=== PATIENT | male | born 1965 | race Caucasian/White ===

== ENCOUNTER 2019-07-08 13:10 | Emergency (ER) | payer OTHER ==
[~2019-07-08] VITALS: Ht 177.8 cm; Wt 106.6 kg
[2019-07-08] MEDS ORDERED: KEFLEX500 M1 PO (14:18)
[2019-07-08] MEDS ORDERED: NORCO 5-325 TA1 EAC1 PO (14:18)
[2019-07-08 14:31] VITALS: BP 156/88
== END 2019-07-08 14:32 | disposition home or self-care (01) ==
LOC: M.ERS 13:10
DX: S01.511A Laceration without foreign body of lip, initial encounter (principal); Z85.828 Personal history of other malignant neoplasm of skin; W22.8XXA Striking against or struck by other objects, initial encounter; Y92.89 Other specified places as the place of occurrence of the external cause; Y93.89 Activity, other specified; Y99.8 Other external cause status